=== PATIENT | female | born 1995 | race Hispanic/Latino ===

== ENCOUNTER 2024-01-31 22:21 | Emergency (ER) | payer BC, SELFPAY ==
[2024-01-31 22:22] VITALS: BP 103/48
[2024-01-31] MEDS: ZOFRAN 4 MG IV (23:28)
[2024-01-31] MEDS: NSS 1000 IV (23:28)
[2024-01-31] MEDS: MORPHINE SULFATE 2 MG IV (23:29)
--- NOTE | 2024-01-31 23:32 | ED.GENMED ---
History of Present Illness
General
Chief Complaint: Back Pain
Source: patient and spouse
Exam Limitations: none
Time Seen by Provider: 01/31/24 23:13
History of Present Illness
History of Present Illness:
G2, P1, 17 weeks with sudden onset of upper mid back pain about 6 PM. Some nausea and vomiting. Took Tylenol at 9 PM but followed 1 hour later with vomiting. No history of same. Patient had an ultrasound for the last week
which is unremarkable. She has had no issues. She denies vaginal bleeding lower abdominal pain fever chest pain shortness of breath.
Past History
Past History
ED Past Surgical History: Tonsilectomy
Review of Systems
Review of Systems
All Other Systems: Not applicable
Constitutional: Denies fever
Respiratory: Denies trouble breathing
Cardiac: Denies chest pain or syncope
ABD/GI: Denies diarrhea
: Reports no symptoms
Phy Exam
Physical Exam
Physical Exam:
GENERAL: Alert and oriented. Nontoxic. But does appear moderately uncomfortable
EYE: Orbits normal.
NECK: Supple
CARDIAC: Regular rate and rhythm without any obvious murmurs.
LUNGS: Clear breath sounds,normal
ABDOMEN: Soft, bowel sounds present. Mild epigastric and mild right upper quadrant tenderness. No rebound or guarding no mass or hernia. No CVA tenderness. No spinal tenderness.
NEUROLOGICAL: Alert and oriented , grossly non-focal
SKIN: Warm and dry, no rash or lesion, no discoloration, skin intact.
MUSCULOSKELETAL: No edema,no deformity.Good color
PSYCH: Normal and appropriate interaction.
Course
Orders/Labs/Results
Orders:
Orders
01/31/24 23:21
IV Insert/Care/Rem.- Treatment PRN
0.9% Sodium Chloride 1000 ml [Nss] 1,000 ml IV BOLUS
Morphine Sulfate 2 mg IV NOW STA
Ondansetron Injectable [Zofran] 4 mg IV NOW STA
01/31/24 23:22
US Abdomen Complete/Upper Urgent
Comment:
Reason For Exam: Upper abdominal/upper back pain
01/31/24 23:23
US Limited Urgent
Reason For Exam: Upper abdominal/upper back pain
01/31/24 23:30
Complete Blood Count/With Diff Urgent
Comprehensive Metabolic Panel Urgent
Lipase Urgent
01/31/24 23:33
EKG [Electrocardiogram (*1)] Urgent
Reason for Study: Abdominal Pain
EKG- Treatment ONCE
02/01/24 01:07
CT Chest Angio W/wo Iv Contras Urgent
Comment:
Reason For Exam: Sudden upper back pain/
02/01/24 02:01
Urinalysis Reflex To Culture Urgent
Date Specimen was Collected: 02/01/24
Time Specimen was Collected: 02:00
Abnormal Lab Results
01/31/24 02/01/24
23:30 02:01
MPV 10.7 H fL
(7.4-10.4)
Absolute Neuts (auto) 9.1 H 10^3/uL
(1.4-6.5)
Neutrophils % 84.5 H %
(42.2-75.2)
Lymphocytes % 11.5 L %
(20.5-51.1)
Sodium 134 L mmol/L
(135-145)
Creatinine 0.5 L mg/dL
(0.6-1.0)
Glucose 137 H mg/dl
(70-99)
Urine Ketones Trace A
(Negative)
01/31/24 23:30
01/31/24 23:30
Vital Signs
Initial and Last Documented VS:
Initial Vital Signs
Temp Pulse Resp BP Pulse Ox
98.1 F 69 16 103/48 100
01/31/24 22:22 01/31/24 22:22 01/31/24 22:22 01/31/24 22:22 01/31/24 22:22
Last Documented Vital Signs
Temp Pulse Resp BP Pulse Ox
98.1 F 70 20 103/60 97
01/31/24 22:22 02/01/24 02:00 02/01/24 02:00 02/01/24 02:00 02/01/24 02:00
MDM/Problems Addressed
Differential Diagnosis Includes:
Patient with sudden onset of relatively mid thoracic back pain while at rest. She had just eaten [employer]. She has some upper abdominal discomfort. Differential would include biliary colic/kidney stone. Doubt musculoskeletal. Would always
have to consider dissection although blood pressure is in the 105/50 range bilaterally. She has no shearing leg pain. She is perfusing well. Statistically unlikely but would have to consider if no other etiology to explain this is found.
Starting with labs ultrasound of the gallbladder kidneys and the fetus. If this does not explain patient's symptoms we must go on to do a CT angiography. This was discussed with the patient and .
*Radiology
Radiology exam reviewed: radiology read reviewed (Sludge in the gallbladder otherwise unremarkable. Fetus within normal limits.) and all reviewed NAD by ED Provider (CT angiography negative)
*Pulse Oximetry
Patient hypoxic: no
*EKG
Interpreted by ED Provider?: Yes
Interpretation: normal
Comparison EKG: no comparison EKG present
Heart Rate: 64
Rate: normal
Rhythm: sinus
[place]: normal axis
Interval: normal interval
QRS Pattern: normal QRS
Ischemia: no ischemia
*Critical Care Note
Total Time (30-74mins, 75-104mins- exclusive of procedures): Not Applicable
Update Note
Update Note:
Patient appears much more comfortable. Still having some upper abdominal discomfort. Back is significantly improved. Again this was a sudden onset of a nonmuscular like upper back pain. Patient was crying at home and appeared very uncomfortable
in ER arrival. Lengthy discussion with the patient and concerning risk of radiation wrist to the fetus versus missing a dissection. Although unlikely statistically given the life-threatening nature of dissection and given the sudden onset
of severe pain with no other explanation, I do feel CT scan is recommended. CT scan of the chest has minimal radiation to the fetus. However risk-benefit explained to the patient and
0215... Patient is remained stable nontoxic. She is in no distress. No serious etiology found for her symptoms. CT angiography negative. Ultrasounds unremarkable except for a small amount of sludge. Abdomen is soft. Stable for discharge to
follow-up.
ED Attending Note
-
Portions of this chart may have been created with voice recognition software.� Occasional wrong word or��sound alike� substitutions may have occurred due to the inherent limitations of voice recognition software.
Discharge Plan
Departure
Patient Disposition: Home (Routine Discharge)
Date of Disposition: 02/01/24
Time of Disposition: 02:20
Patient with high blood pressure during this ER visit?: No
Discharge Problem:
Upper back/upper abdominal pain,
Prescriptions:
No Action
1 tab PO DAILY
Referrals:
Ren Hua CRNP [Family Provider] -
Activity Restrictions/Additional Instructions:
Call your primary physician and your rn clinician Friday for close follow-up
Tylenol only for pain
Return with recurrence of severe pain severe abdominal pain fever vomiting vaginal bleeding lower abdominal pain shortness of breath or any other concerning symptoms
Interventions
Interventions:
*Risk Screen - Suicide Last Done: 01/31/24 22:22
*General Assessment Last Done: 01/31/24 22:22
*Neglect/Abuse Screening Last Done: 01/31/24 22:22
ED- Fall Risk Assessment Last Done: 02/01/24 00:32
*ED COVID-19 Vaccine History Last Done: 01/31/24 22:22
ED-Musculoskeletal Assessment Last Done: 02/01/24 00:32
Discharge Date and Time
Print Language: MAURITANIAN
[2024-01-31 23:48] LABS: % Basophils 0.2 % (0-2); % Eosinophils 0.2 % (0-6); % Immature Granulocytes 0.3 % (0-0.5); % Lymphocytes 11.5 % (20.5-51.1); % Monocytes 3.3 % (1.7-9.3); % Neutrophils 84.5 % (42.2-75.2); Absolute Lymphocytes 1.2 10^3/uL (1.2-3.4); Absolute Monocytes 0.4 10^3/uL (0.1-0.6); Absolute Neutrophils 9.1 10^3/uL (1.4-6.5); Hematocrit 40.1 % (37.0-47.0); Hemoglobin 13.4 g/dL (12.0-16.0); Mean Corp Hgb Conc. 33.4 g/dL (33.0-37.0); Mean Corpuscular Hgb 28.3 pg (27.0-31.0); Mean Corpuscular Volume 84.6 fL (81.0-99.0); Mean Platelet Volume 10.7 fL (7.4-10.4); Nucleated Red Blood Cells % 0 %; Platelet Count 231 10^3/uL (130-400); Red Blood Cell Count 4.74 10^6/uL (4.20-5.40); Red Cell Dist. Width 13.2 % (11.5-14.5); White Blood Cell Count 10.8 10^3/uL (4.8-10.8)
[2024-01-31 23:50] LABS: ALT (SGPT) 13 U/L (0-35); AST (SGOT) 17 U/L (14-36); Alkaline Phosphatase 58 U/L (38-126); Blood Urea Nitrogen 7 mg/dl (7-17); Calcium 9.7 mg/dl (8.4-10.2); Carbon Dioxide 25 mmol/L (22-30); Chloride 101 mmol/L (98-107); Glucose 137 mg/dl (70-99); Lipase 72 U/L (23-300); Potassium 3.6 mmol/L (3.5-5.1); Sodium 134 mmol/L (135-145); Total Bilirubin 0.7 mg/dl (0.2-1.3); Total Protein 6.9 g/dl (6.3-8.2); eGFR > 60.00
[2024-02-01 00:28] VITALS: BP 107/64
[2024-02-01 00:30] VITALS: BMI 27.3
[2024-02-01 01:00] VITALS: BP 102/56
[2024-02-01 02:00] VITALS: BP 103/60
[2024-02-01 02:08] LABS: Urine Albumin Trace (Neg - Trace); Urine Bilirubin Negative (Negative); Urine Character Clear (Clear); Urine Color Yellow; Urine Glucose Negative (Negative); Urine Ketone Trace (Negative); Urine Leukocyte Negative (Negative); Urine Nitrite Negative (Negative); Urine Occult Blood Negative (Negative); Urine Urobilinogen Negative (Neg - 1+)
== END 2024-02-01 02:52 | disposition home or self-care (01) ==
LOC: EMR 22:21
PROVIDERS: EMERGENCY PHYSICIAN Emergency Medicine; FAMILY PHYSICIAN Nurse Practitioner Family
DX: O26.892 Other specified pregnancy related conditions, second trimester (principal); M54.6 Pain in thoracic spine; R10.10 Upper abdominal pain, unspecified; O21.9 Vomiting of pregnancy, unspecified; Z3A.17 17 weeks gestation of pregnancy
CPT/HCPCS: 99284; 96374; 96375; 96361; 71275; 76700; 76815; 80053; 81003; 83690; 85025; 93005; Q9967

== ENCOUNTER → 2024-05-19 08:50 | Outpatient (REF) | payer BC, SELFPAY ==
--- NOTE | 2024-05-19 09:02 | PN.DIAED06 ---
Meal Plan - Gestational
- Breakfast
Gestational Diabetes Meal Plan Name: 1800 calories
Breakfast - Total Carbohydrate (grams): 30
Breakfast - Starch Carbohydrate: 1
Breakfast - Fruit Carbohydrate: 0
Breakfast - Milk Carbohydrate: 1
Breakfast - Nonstarchy Vegetables: Yes
Breakfast - Meat/Protein: 1
Breakfast - Fat: 2
- Morning Snack
Morning Snack - Total Carbohydrate (grams): 30
Morning Snack - Starch Carbohydrate: 1
Morning Snack - Fruit Carbohydrate: 0
Morning Snack - Milk Carbohydrate: 1
Morning Snack - Nonstarchy Vegetables: Yes
Morning Snack - Meat/Protein: 0.5
Morning Snack - Fat: 0
- Lunch
Lunch - Total Carbohydrate (grams): 45
Lunch - Starch Carbohydrate: 2
Lunch - Fruit Carbohydrate: 1
Lunch - Milk Carbohydrate: 0
Lunch - Nonstarchy Vegetables: Yes
Lunch - Meat/Protein: 2
Lunch - Fat: 1
- Afternoon Snack
Afternoon Snack - Total Carbohydrate (grams): 30
Afternoon Snack - Starch Carbohydrate: 1
Afternoon Snack - Fruit Carbohydrate: 1
Afternoon Snack - Milk Carbohydrate: 0
Afternoon Snack - Nonstarchy Vegetables: Yes
Afternoon Snack - Meat/Protein: 1
Afternoon Snack - Fat: 0
- Dinner
Dinner - Total Carbohydrate (grams): 45
Dinner - Starch Carbohydrate: 2
Dinner - Fruit Carbohydrate: 0
Dinner - Milk Carbohydrate: 1
Dinner - Nonstarchy Vegetables: Yes
Dinner - Meat/Protein: 2
Dinner - Fat: 2
- Evening Snack
Evening Snack - Total Carbohydrate (grams): 30
Evening Snack - Starch Carbohydrate: 1
Evening Snack - Fruit Carbohydrate: 0
Evening Snack - Milk Carbohydrate: 1
Evening Snack - Nonstarchy Vegetables: Yes
Evening Snack - Meat/Protein: 1
Evening Snack - Fat: 1
--- NOTE | 2024-05-19 10:26 | PN.DE ---
Diabetes Education
- -
05/19/2024: Gestational Diabetes Consult
Met with Ms. Escobedo today, G2,1, currently at 32 weeks of gestation, here today for medical nutrition therapy.
Explained glucose metabolism in body and what occurs during to cause increase blood sugar. Discussed importance of keeping BS well controlled to avoid complications to the baby during and after (macrosomia, hypoglycemia).
Discussed macronutrients, provided with 1800 gibran GDM meal plan, she has a good understanding of healthy nutrition and has been eating healthy since finding out that she has GDM with this .
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 Sydnee was encouraged to start exercising by taking a walk daily
during her lunch break at work, she was receptive to the idea and stated that she would make the effort to start exercising.
Sydnee presented to the appointment with a new Glucose monitor- [employer] with supplies. Reviewed proper testing technique, testing sites and testing pattern. She is aware to test FBS and 2 hr pp each meal. Expected results for FBS <95 mg/dl
and 2 hr pp <120 mg/dl. Noted for blood sugar of 116mg/dl 1 hr after breakfast this morning. Log sheet provided for her to record results, she will send a 4-day meal log with all her FBG and 2hr Post prandial glucose numbers to this office for
review. In addition, she will send all her glucose readings to Marina at [facility] every Friday.
She was encouraged to reach out should she require insulin.
== END ==
LOC: DES 08:50
PROVIDERS: ATTENDING PHYSICIAN Obstetrics & Gynecology
DX: O24.419 Gestational diabetes mellitus in pregnancy, unspecified control (principal)
CPT/HCPCS: 99078

== ENCOUNTER → 2024-06-15 15:31 | Outpatient (REF) | payer BC, SELFPAY | LOC: PNTC 15:31 | PROVIDERS: ATTENDING PHYSICIAN Obstetrics & Gynecology | DX: K80.20 Calculus of gallbladder without cholecystitis without obstruction (principal); O24.419 Gestational diabetes mellitus in pregnancy, unspecified control; O76 Abnormality in fetal heart rate and rhythm complicating labor and delivery | CPT/HCPCS: 59025; 76818 ==

== ENCOUNTER 2024-06-20 04:37 | Inpatient (IN) | payer BC, SELFPAY ==
[2024-06-20 05:15] VITALS: BMI 29.4
[2024-06-20 05:24] VITALS: BP 103/67
[2024-06-20 05:40] LABS: Glucose - Point of Care 95 mg/dl (70-99)
[2024-06-20 05:43] LABS: % Basophils 0.3 % (0-2); % Eosinophils 0.8 % (0-6); % Immature Granulocytes 0.3 % (0-0.5); % Lymphocytes 24.3 % (20.5-51.1); % Monocytes 6.2 % (1.7-9.3); % Neutrophils 68.1 % (42.2-75.2); Absolute Eosinophils 0.1 10^3/uL (0-0.7); Absolute Lymphocytes 1.8 10^3/uL (1.2-3.4); Absolute Monocytes 0.5 10^3/uL (0.1-0.6); Absolute Neutrophils 5.2 10^3/uL (1.4-6.5); Hematocrit 33.9 % (37.0-47.0); Hemoglobin 11.5 g/dL (12.0-16.0); Mean Corp Hgb Conc. 33.9 g/dL (33.0-37.0); Mean Corpuscular Hgb 27.1 pg (27.0-31.0); Mean Corpuscular Volume 79.8 fL (81.0-99.0); Mean Platelet Volume 11.4 fL (7.4-10.4); Nucleated Red Blood Cells % 0 %; Platelet Count 236 10^3/uL (130-400); Red Blood Cell Count 4.25 10^6/uL (4.20-5.40); Red Cell Dist. Width 14.3 % (11.5-14.5); White Blood Cell Count 7.6 10^3/uL (4.8-10.8)
[2024-06-20] MEDS: CELESTONE SOLUSPAN 2 MG IM (05:44)
[2024-06-20] MEDS: PENICILLIN 110 UNITS IV (05:44)
[2024-06-20] MEDS: LR 1000 IV ×2 (05:44→08:01)
[2024-06-20] MEDS: FENTANYL/BUPIVACAINE 100 EPIDURAL (07:27)
[2024-06-20] MEDS: SUBLIMAZE 100 MCG EPIDURAL (07:27)
[2024-06-20 07:44] LABS: Glucose - Point of Care 88 mg/dl (70-99)
[2024-06-20] MEDS: PITOCIN 30 UNITS/NSS 500 ML IV (09:12)
[2024-06-20 09:48] LABS: Glucose - Point of Care 99 mg/dl (70-99)
[2024-06-20] MEDS: PENICILLIN 55 UNITS IV ×2 (09:52→14:04)
[2024-06-20 11:50] LABS: Glucose - Point of Care 109 mg/dl (70-99)
[2024-06-20 13:47] LABS: Glucose - Point of Care 103 mg/dl (70-99)
[2024-06-20] MEDS: METHERGINE INJECTION 0.2 MG IM (15:18)
[2024-06-21 04:35] LABS: Hematocrit 35.7 % (37.0-47.0); Hemoglobin 11.8 g/dL (12.0-16.0)
[2024-06-21] MEDS: PRENATAL PLUS 1 TABLET PO (08:08)
[2024-06-21] MEDS: SENOKOT-S 1 TABLET PO (08:08)
[2024-06-22] MEDS: PRENATAL PLUS 1 TABLET PO (08:45)
[2024-06-22] MEDS: SENOKOT-S 1 TABLET PO (08:45)
[2024-06-22 14:14] LABS: Syphilis/T. pallidum Ab Reflex Negative (Negative)
== END 2024-06-22 21:05 | disposition home or self-care (01) | DRG 807 ==
LOC: LDRP 04:37
PROVIDERS: ADMITTING PHYSICIAN Obstetrics & Gynecology
PROC: 10E0XZZ Delivery of Products of Conception, External Approach (ICD-10-PCS; 2024-06-20)
PROC: 10907ZC Drainage of Amniotic Fluid, Therapeutic from Products of Conception, Via Natural or Artificial Opening (ICD-10-PCS; 2024-06-20)
DX: O42.013 Preterm premature rupture of membranes, onset of labor within 24 hours of rupture, third trimester (principal); Z37.0 Single live birth; O69.2XX0 Labor and delivery complicated by other cord entanglement, with compression, not applicable or unspecified; O24.420 Gestational diabetes mellitus in childbirth, diet controlled; O76 Abnormality in fetal heart rate and rhythm complicating labor and delivery; Z3A.36 36 weeks gestation of pregnancy; K80.20 Calculus of gallbladder without cholecystitis without obstruction; O99.344 Other mental disorders complicating childbirth; F41.9 Anxiety disorder, unspecified; F32.A Depression, unspecified; Z82.49 Family history of ischemic heart disease and other diseases of the circulatory system; Z83.3 Family history of diabetes mellitus
CPT/HCPCS: 88307; 82962; 85014; 85018; 85025; 86780; 86850; 86900; 86901

== ENCOUNTER 2024-10-15 16:51 | Emergency (ER) | payer BC, SELFPAY ==
[2024-10-15 16:53] VITALS: BP 113/59
[2024-10-15 17:12] LABS: Hematocrit 37.3 % (37.0-47.0); Hemoglobin 12.5 g/dL (12.0-16.0); Mean Corp Hgb Conc. 33.5 g/dL (33.0-37.0); Mean Corpuscular Volume 83.3 fL (81.0-99.0); Nucleated Red Blood Cells % 0 %; Platelet Count 238 10^3/uL (130-400); Red Cell Dist. Width 13.6 % (11.5-14.5)
[2024-10-15 17:24] LABS: HCG, Serum Qualitative Screen Negative
[2024-10-15 17:38] LABS: ALT (SGPT) 45 U/L (0-35); AST (SGOT) 86 U/L (14-36); Albumin 4.5 g/dl (3.5-5.0); Alkaline Phosphatase 90 U/L (38-126); Blood Urea Nitrogen 19 mg/dl (7-17); Calcium 9.0 mg/dl (8.4-10.2); Carbon Dioxide 24 mmol/L (22-30); Chloride 106 mmol/L (98-107); Glucose 121 mg/dl (70-99); Lipase 132 U/L (23-300); Potassium 3.8 mmol/L (3.5-5.1); Sodium 138 mmol/L (135-145); Total Protein 7.0 g/dl (6.3-8.2); eGFR > 60.00
[2024-10-15 17:59] VITALS: BMI 25.6
[2024-10-15 18:02] VITALS: BP 93/54
--- NOTE | 2024-10-15 19:24 | ED.GENMED ---
History of Present Illness
General
Chief Complaint: Abdominal Pain
Time Seen by Provider: 10/15/24 19:17
History of Present Illness
History of Present Illness:
PAST MEDICAL HISTORY AND REVIEW OF OLD RECORDS
- Patient states that she has had biliary colic in the past. I reviewed records, the patient gave in May of this year.
Note:
CHIEF COMPLAINT(S)
Recurrent abdominal pain, suspected to be related to gallstones.
HISTORY OF PRESENT ILLNESS
The patient is a 28-year-old female with a history of gallstones who presents with abdominal pain. She describes having had two prior gallbladder attacks, diagnosed via ultrasound, which showed gallstones and sludge. Her last ultrasound was in
May, conducted in [place], before the of her child. Currently, she reports taking ibuprofen for pain relief, which diminished the pain after about an hour and a half. Her pain is now almost resolved. The patient mentioned seeing a surgeon
about a week before giving , who advised waiting for surgery. She had scheduled a follow-up appointment with the surgeon for August but canceled it due to lack of symptoms. She reports the abdominal pain as intense, rating her previous episodes
as 100 out of 100 in intensity, but notes no significant pain on the left side during examination. There is a history of pain radiating into her back. She denies pain in her left upper abdomen upon examination, and no significant increase in pain
upon palpation over the gallbladder area, suggesting the absence of acute cholecystitis.
ADDITIONAL HISTORY OBTAINED FROM SOURCE OTHER THAN PATIENT
N/A
EXTERNAL RECORDS REVIEWED
The prior ultrasound conducted in May in [place] revealed gallstones and sludge.
CHRONIC MEDICAL CONDITIONS SIGNIFICANTLY AFFECTING CARE
History of gallstones.
PHYSICAL EXAM
General: Alert, no acute distress. Appears comfortable.
Skin: Warm, dry.
Head: Normocephalic, atraumatic.
Neck: Supple, trachea midline.
Eyes, Ears, Nose, Mouth and Throat: Oral mucosa moist.
Cardiovascular: Normal peripheral perfusion, no edema.
Respiratory: Respirations are non-labored.
Gastrointestinal: Abdomen nondistended; minimal tenderness over the gallbladder without significant pain upon specific examination to rule out infection.
Back: Normal range of motion, normal alignment.
Musculoskeletal: Normal range of motion, normal strength.
Neurological: Alert and oriented to person, place, time, and situation; no focal neurological deficit observed.
Psychiatric: Cooperative, appropriate mood and affect.
PLAN
1. Conduct an abdominal ultrasound to assess the current status of gallstones.
2. Based on ultrasound results, recommend outpatient follow-up with a surgeon for further management of gallstones.
3. Patient education on potential signs of gallbladder infection and instructions to seek immediate care if symptoms worsen.
DIFFERENTIAL DIAGNOSIS
The Differential Diagnosis includes, in no particular order and is not limited to:
1. Biliary colic
2. Cholelithiasis
3. Cholecystitis
4. Peptic ulcer disease
5. Gastroesophageal reflux disease
6. Pancreatitis
7. Hepatitis
8. Nephrolithiasis
9. Irritable bowel syndrome
10. Pleurisy
Disposition:
SUMMARY OF ENCOUNTER
The patient, a 28-year-old female, presented to the emergency department with recurrent abdominal pain, suspected to be related to gallstones. She has a documented history of gallstones with previous gallbladder attacks. On this visit, laboratory
tests revealed slightly elevated AST and ALT levels, which were not significantly high to suggest acute liver disease or infection. The patient�s symptoms are consistent with biliary colic. There was no indication of a severe infection as white
blood cell count and other liver enzymes were not critically elevated. The pain management plan involves monitoring and potential outpatient cholecystectomy, given the recurrent and intense nature of her episodes.
ASSESSMENT
Recurrent biliary colic secondary to gallstones without evidence of acute cholecystitis or significant liver dysfunction.
PLAN
1. Schedule an outpatient abdominal ultrasound to reassess gallstones.
2. Recommend follow-up care with a surgeon for evaluation and consideration for elective cholecystectomy.
3. Educate the patient on signs of gallbladder infection or complications, advising immediate medical attention if symptoms worsen.
INDEPENDENT REVIEW OF LABS AND INTERPRETATION OF TESTS
My independent review of the hepatic panel is that AST and ALT are slightly elevated. These results do not indicate significant liver dysfunction without accompanying elevated bilirubin or alkaline phosphatase.
PATIENT EDUCATION AND COUNSELING
The patient was educated on the nature of gallbladder attacks and informed that severe or persisting pain may require medical attention. It was explained that gallstone-related pain often resolves without the need for immediate surgery, but
outpatient management by a surgeon is advised.
FOLLOW-UP INSTRUCTIONS
The patient is advised to follow up with a surgeon to discuss potential cholecystectomy and to schedule an outpatient ultrasound. She should seek immediate care if experiencing severe pain or signs of infection.
MEDICATION RECONCILIATION
The patient is currently using ibuprofen for pain relief.
MEDICAL DECISION MAKING
-Complexity of Data Reviewed: Chronic conditions affecting care include a history of gallstones. Differential diagnosis includes biliary colic, cholelithiasis, cholecystitis, peptic ulcer disease, gastroesophageal reflux disease, pancreatitis,
hepatitis, nephrolithiasis, irritable bowel syndrome, and pleurisy.
-Data:
Category 1: I reviewed the patients outpatient records, noting a history of gallstones and previous ultrasound results.
-Risk: Consideration of Admission/Observation: Escalation of care including admission/observation was considered given the complexity and risk of the patients presenting complaint, exam findings, and underlying comorbidities. However, ultimately I
feel the patient is safe for outpatient management with close follow up. Reasoning: Work-up reassuring, does not reveal any acute life/organ threatening processes, patients symptoms well controlled upon reevaluation, reexamination is reassuring,
vitals are stable, patient agreeable with discharge, reliable for follow-up.
DIAGNOSIS
1. Biliary colic due to cholelithiasis (K80.20).
2. Elevated liver enzymes, unspecified (R74.01).
RADIOLOGY
- Ultrasound shows gallstones/sludge with no evidence for infection
LABS
- White count and hemoglobin are normal, minimal transaminase elevation, normal total bili and normal alk phos, lipase normal
Past History
Past History
ED Past Surgical History: Tonsilectomy
Phy Exam
Physical Exam
Physical Exam:
See HPI
Course
Orders/Labs/Results
Orders:
Orders
10/15/24 16:55
Test Result ONCE
10/15/24 17:01
Complete Blood Count/With Diff Urgent
Comprehensive Metabolic Panel Urgent
HCG, Serum Qualitative Screen Urgent
Lactic Acid Urgent
Lipase Urgent
10/15/24 19:26
US Abdomen Complete/Upper Urgent
Comment:
Reason For Exam: upper pain; h/o biliary colic
Abnormal Lab Results
10/15/24
17:01
Neutrophils % 33.2 L %
(42.2-75.2)
Monocytes % 9.6 H %
(1.7-9.3)
Eosinophils % 7.1 H %
(0-6)
BUN 19 H mg/dl
(7-17)
Glucose 121 H mg/dl
(70-99)
AST 86 H U/L
(14-36)
ALT 45 H U/L
(0-35)
10/15/24 17:01
10/15/24 17:01
Vital Signs
Initial and Last Documented VS:
Initial Vital Signs
Temp Pulse Resp BP Pulse Ox
36.9 C 83 16 113/59 100
10/15/24 16:53 10/15/24 16:53 10/15/24 16:53 10/15/24 16:53 10/15/24 16:53
Last Documented Vital Signs
Temp Pulse Resp BP Pulse Ox
36.9 C 74 18 93/54 100
10/15/24 16:53 10/15/24 18:02 10/15/24 18:02 10/15/24 18:02 10/15/24 19:26
*Pulse Oximetry
SaO2: 100
Oxygen Mode of Delivery: Room air
Patient hypoxic: no
*Critical Care Note
Total Time (30-74mins, 75-104mins- exclusive of procedures): Not Applicable
ED Attending Note
-
Portions of this chart may have been created with voice recognition software.� Occasional wrong word or��sound alike� substitutions may have occurred due to the inherent limitations of voice recognition software.
Discharge Plan
Departure
Patient Disposition: Home (Routine Discharge)
Date of Disposition: 10/15/24
Time of Disposition: 20:52
Patient with high blood pressure during this ER visit?: Yes
Discharge Problem:
Biliary colic
Prescriptions:
No Action
1 tab PO DAILY
sennosides-docusate sodium 8.6-50 mg Tablet
1 tab PO DAILYPRN PRN (Reason: constipation) Qty: 0 0RF
ibuprofen 600 mg Tablet
600 mg PO Q6HPRN PRN (Reason: moderate pain/cramps) Qty: 30 0RF
acetaminophen 325 mg Tablet
650 mg PO Q4HPRN PRN (Reason: mild pain) Qty: 0 0RF
calcium carbonate [Calcium Antacid] 200 mg calcium (500 mg) Tablet,Chewable
400 mg PO Q6HPRN PRN (Reason: indigestion) Qty: 0 0RF
Referrals:
Ren Hua CRNP [Family Provider, General]
Hakan Lainez MD [Active, Surgical]
Activity Restrictions/Additional Instructions:
Return here if worse or other concerns. Follow-up Dr. Lainez.
ULTRASOUND:
There is stones/sludge within the gallbladder without sonographic findings of acute cholecystitis. There is no evidence of biliary duct dilation.
Interventions
Interventions:
*Risk Screen - Suicide Last Done: 10/15/24 18:00
*General Assessment Last Done: 10/15/24 18:00
*Neglect/Abuse Screening Last Done: 10/15/24 18:00
*ED- Fall Risk Assessment Last Done: 10/15/24 18:00
*ED COVID-19 Vaccine History Last Done: 10/15/24 18:00
MG-Pudpuh-Vvobauiixh Assessment Last Done: 10/15/24 18:04
Discharge Date and Time
Print Language: UKRAINIAN
[2024-10-15 21:00] VITALS: BP 103/60
== END 2024-10-15 21:05 | disposition home or self-care (01) ==
LOC: EMR 16:51
PROVIDERS: Emergency Medicine; EMERGENCY PHYSICIAN Emergency Medicine; FAMILY PHYSICIAN Nurse Practitioner Family
DX: K80.70 Calculus of gallbladder and bile duct without cholecystitis without obstruction (principal)
CPT/HCPCS: 99284; 76700; 80053; 83605; 83690; 84703; 85025

== ENCOUNTER 2024-12-03 06:13 | Day surgery (SDC) | payer BC, SELFPAY ==
[2024-12-03] VITALS (8 sets, daily range): BP systolic 103–115; BP diastolic 58–64; BMI 22.9
[2024-12-03] MEDS: IC GREEN 2.5 MG IV (12:05)
[2024-12-03] MEDS: TYLENOL 1000 MG PO (12:05)
[2024-12-03] MEDS: HEPARIN 5000 UNITS SC (12:52)
[2024-12-03] MEDS: NORMOSOL-R/PLASMALYTE-A 1000 IV (12:52)
--- NOTE | 2024-12-03 14:25 | W.IMMPOSTOP ---
Surgical Immed Post Op Note
-
Primary Surgeon: Fatou
Assisting: Archie ALLEN
Pre-op Diagnosis: Biliary colic
Post-op Diagnosis: Same
Procedure Performed: Robotic cholecystectomy with intraoperative near infared imaging of major extrahepatic bile ducts
Anesthesia Type: GETA
Specimen / Cultures: Gallbladder
Estimated Blood Loss: 5cc
Complications: None immediate
Operative Findings: Floppy gallbladder with mild posterior wall fibrosis
--- NOTE | 2024-12-03 14:28 | OR.RPT ---
Operative Report
Operative Report
Primary Surgeon: Fatou
Assisting: Archie ALLEN
Pre-op Diagnosis: Biliary colic
Post-op Diagnosis: Same
Procedure Performed: Robotic cholecystectomy with intraoperative near infared imaging of major extrahepatic bile ducts
Anesthesia Type: GETA
Specimen / Cultures: Gallbladder
Estimated Blood Loss: 5cc
Complications: None immediate
Operative Findings: Floppy gallbladder with mild posterior wall fibrosis
DOS: 12/03/24
Indications: This 28F developed right upper quadrant/epigastric pain and on workup was found to have cholelithiasis with normal liver enzymes and no ductal dilation. Laparoscopic cholecystectomy with robotic assist was elected.
Description of procedure: The patient was placed on the operating table in the supine position. General anesthesia was induced. A time-out was completed verifying correct patient, procedure, site, positioning, and special equipment prior to
beginning this procedure. An orogastric tube was placed. The abdomen was prepped and draped in the usual sterile fashion. A stab incision was made in left upper quadrant and the Veress needle was inserted. Proper position was confirmed by aspiration
and saline meniscus test. The abdomen was insufflated with carbon dioxide to a pressure of 12 mmHg. The patient tolerated insufflation well.
An 8mm optical trocar was then inserted in the left upper quadrant. The laparoscope was inserted and the abdomen inspected. No injuries from initial trocar placement or Veress needle insertion were noted. Additional 8mm trocars were then inserted in
the following locations: above the umbilicus, right mid clavicular line at the level of the umbilicus and 6cm lateral to this on the right. The abdomen was inspected and no abnormalities were found. The table was placed in the reverse Trendelenburg
position with the right side up. Filmy adhesions from the right lobe dome of the liver to the diaphragm were noted, but not disturbed. The dome of the gallbladder was grasped with an atraumatic grasper and retracted over the dome of the liver. The
infundibulum was also grasped with an atraumatic grasper and retracted toward the right lower quadrant. This maneuver exposed Calot�s triangle. The cystic duct and cystic artery were dissected out until the only two structures entering the
gallbladder were these two structures. ICG was used to visualize the cystic duct and common duct and anatomy was confirmed. The common duct was protected.
The cystic artery was controlled with bipolar and divided. The cystic duct was doubly clipped and divided. The gallbladder was dissected free from the liver bed. Hemostasis was assured and the gallbladder and contained stones were removed using an
endoscopic retrieval bag placed through the umbilical port. The gallbladder was passed off the table as a specimen. The gallbladder fossa was monitored and hemostasis was again assured. There was no evidence of bleeding from the gallbladder fossa or
cystic artery or leakage of the bile from the cystic duct stump. The umbilical trocar site was closed at the fascial level laparoscopically with 2-0 PDS. Secondary trocars were removed under direct vision and noted to be hemostatic. The laparoscope
was withdrawn and the umbilical trocar removed. The abdomen was allowed to collapse. The skin was closed with subcuticular sutures of 4-0 monocryl and topical skin adhesive. The orogastric tube was removed.
The patient tolerated the procedure well and was taken to the postanesthesia care unit in stable condition.
The assistance of Archie ALLEN was required due to the complexity of the procedure. During the procedure she assisted with retraction, resection, and closure of the wound.
[2024-12-03] MEDS: ZOFRAN 4 MG IV (15:07)
== END 2024-12-03 16:40 | disposition home or self-care (01) ==
LOC: SDS 06:13
PROVIDERS: ATTENDING PHYSICIAN Surgery
DX: K80.10 Calculus of gallbladder with chronic cholecystitis without obstruction (principal)
CPT/HCPCS: 47562; 88304